=== PATIENT | female | born 1945 | race Caucasian/White ===

== ENCOUNTER → 2017-11-05 | Outpatient (CLI) | payer MEDICARE ==
[~2017-11-05] MED LIST: ALEVE220 MG PO; BUPR75; Budeprion Xl300 MG; CALCAVITD PO; Celexa10 MG PO; FOLBIC RF TABL1 EACH; Ferrous Fumara324 MG; GLUC500 PO; LATANOPROST1 GM; MELA3 PO; MSM; PRED1; PRIMADOPHILUS; PROLIA60 MG/1 ML; ULTRA-LIGHT RO1 EACH UD; Vitamin D2000 UNIT PO; ZINC10 MG PO; ZYRTEC10 M2 PO
[2017-11-07 14:21] LABS: Stool Occult Bld Immuno 1 Positive (NEGATIVE); Stool Occult Bld Immuno 2 Positive (NEGATIVE)
== END | disposition home or self-care (01) ==
LOC: OLS 09:47
PROVIDERS: Internal Medicine Gastroenterology
DX: D50.9 Iron deficiency anemia, unspecified (principal)
CPT/HCPCS: 82274

== ENCOUNTER 2017-12-17 14:17 | Day surgery (SDC) | payer MEDICARE ==
[~2017-12-17] VITALS: Ht 154.9 cm; Wt 49.5 kg
[~2017-12-17 14:17] MED LIST changes: -BUPR75; -ULTRA-LIGHT RO1 EACH UD
[2017-12-17] MEDS ORDERED: BUPR75 (14:42)
== END 2017-12-17 17:10 | disposition home or self-care (01) ==
LOC: ORSCSDS 14:17
PROVIDERS: Internal Medicine Gastroenterology
PROC: 0DB98ZX Excision of Duodenum, Via Natural or Artificial Opening Endoscopic, Diagnostic (ICD-10-PCS; principal; 2017-12-17 15:30)
PROC: 0DB38ZX Excision of Lower Esophagus, Via Natural or Artificial Opening Endoscopic, Diagnostic (ICD-10-PCS; principal; 2017-12-17 15:30)
PROC: 0DB68ZX Excision of Stomach, Via Natural or Artificial Opening Endoscopic, Diagnostic (ICD-10-PCS; principal; 2017-12-17 15:30)
DX: R19.5 Other fecal abnormalities (principal); K29.70 Gastritis, unspecified, without bleeding; K44.9 Diaphragmatic hernia without obstruction or gangrene; D50.9 Iron deficiency anemia, unspecified; J44.9 Chronic obstructive pulmonary disease, unspecified; G47.33 Obstructive sleep apnea (adult) (pediatric); Z87.891 Personal history of nicotine dependence
CPT/HCPCS: 87081; 88305

== ENCOUNTER 2018-01-28 15:13 | Emergency (ER) | payer MEDICARE ==
[~2018-01-28] VITALS: Ht 154.9 cm; Wt 49.9 kg
[~2018-01-28 15:13] MED LIST changes: +BUPR75
[2018-01-28 15:43] LABS: BASOPHILS ABSOLUTE AUTO 0.02 K/mm3 (0.00-0.23); BASOPHILS PERCENT AUTO 0 % (0-2); EOSINOPHILS ABSOLUTE AUTO 0.01 K/mm3 (0.00-0.68); EOSINOPHILS PERCENT AUTO 0 % (0-6); Hemoglobin 13.2 g/dL (11.5-16.0); IMMATURE GRAN ABSOLUTE AUTO 0.03 K/mm3 (0.00-0.10); IMMATURE GRAN PERCENT AUTO 0 % (0-1); LYMPHOCYTES ABSOLUTE AUTO 0.92 K/mm3 (0.84-5.20); LYMPHOCYTES PERCENT AUTO 10 % (21-46); MONOCYTES ABSOLUTE AUTO 1.16 K/mm3 (0.16-1.47); MONOCYTES PERCENT AUTO 13 % (4-13); Mean Corpuscular HGB 29.2 pg (26.0-34.0); Mean Corpuscular HGB Conc 32.2 g/dL (31.5-36.5); Mean Corpuscular Volume 91 fL (80-100); Mean Platelet Volume 8.8 fL (9.1-12.4); NEUTROPHILS ABSOLUTE AUTO 7.15 K/mm3 (1.96-9.15); NEUTROPHILS PERCENT AUTO 77 % (41-73); Platelet Count 376 K/mm3 (150-400); RDW Coefficient Variation 13.3 % (11.7-14.2); RDW Standard Deviation 44.5 fL (35.1-46.3); Red Blood Cell Count 4.52 M/mm3 (3.80-5.20); White Blood Cell Count 9.29 K/mm3 (4.00-11.30)
[2018-01-28 16:10] LABS: Alanine Aminotransfer (ALT/SGP 36 U/L (12-78); Albumin, Blood 3.2 g/dL (3.4-5.0); Albumin/Globulin Ratio 0.7 (0.8-1.8); Alk Phos 77 U/L (50-136); Anion Gap 11 mmol/L (6-16); Aspartate Aminotrans (AST/SGOT 53 U/L (12-37); Bilirubin, Total 0.7 mg/dL (0.1-1.0); Blood Urea Nitrogen 40 mg/dL (8-24); Bun/Creatinine Ratio 47.2 (12.0-20.0); CO2, Blood 27 mmol/L (21-32); Calcium, Blood 8.3 mg/dL (8.5-10.1); Chloride, Blood 98 mmol/L (98-108); Creatinine, Blood 0.85 mg/dL (0.40-1.00); Globulin, Blood 4.3 g/dL (2.2-4.0); Glomerular Filtration Rate >60 (60-); Glucose, Blood 111 mg/dL (70-99); Potassium, Blood 3.8 mmol/L (3.5-5.5); Sodium, Blood 136 mmol/L (136-145); Total Protein, Blood 7.5 g/dL (6.4-8.2)
[2018-01-28] MEDS ORDERED: ULTRA-LIGHT RO1 EACH UD (17:54)
== END 2018-01-28 18:29 | disposition home or self-care (01) ==
LOC: ER 15:13
PROVIDERS: Physician Assistant
DX: R41.0 Disorientation, unspecified (principal); Z91.030 Bee allergy status; Z79.899 Other long term (current) drug therapy; Z79.52 Long term (current) use of systemic steroids; Z87.891 Personal history of nicotine dependence
CPT/HCPCS: 36415; 70450; 71046; 80053; 82607; 82746; 83690; 84443; 85025; 93005; 93010; 99284

== ENCOUNTER → 2018-02-01 | Outpatient (CLI) | payer MEDICARE ==
[~2018-02-01] MED LIST changes: +ULTRA-LIGHT RO1 EACH UD
[2018-02-01 15:19] LABS: Appearance, Urine Clear (Clear); Bilirubin, Urine Neg (Neg); Blood, Urine 1+ (Neg); Color, Urine Yellow (P-Yellow); Glucose Qualitative, Urine Neg (Neg); Ketones, Urine Neg (Neg); Leukocyte Esterase, Urine 1+ (Neg); Nitrite, Urine Neg (Neg); Protein, Urine Neg (Neg); Urobilinogen, Urine NORM (Normal)
[2018-02-01 15:52] LABS: Red Blood Cells, Urine 0-2 /hpf (0-2)
[2018-02-01 15:54] LABS: Bacteria Rare /hpf; Squamous Epithelial Cells Rare /hpf (Few)
[2018-02-01 15:55] LABS: Uric Acid Crystals Mod /hpf
== END ==
LOC: LAB 14:45 → LAB FUT 01-21 16:30
PROVIDERS: Internal Medicine
DX: R30.0 Dysuria (principal)
CPT/HCPCS: 81001; 87086

== ENCOUNTER → 2018-11-19 | Outpatient (CLI) | payer OTHER ==
[2018-11-19 12:53] LABS: Bilirubin, Urine Neg (Neg); Blood, Urine 1+ (Neg); Glucose Qualitative, Urine Neg (Neg); Ketones, Urine Neg (Neg); Leukocyte Esterase, Urine 2+ (Neg); Nitrite, Urine Neg (Neg); Protein, Urine Neg (Neg); Urobilinogen, Urine NORM (Normal)
[2018-11-19 14:05] LABS: Appearance, Urine Clear (Clear); Color, Urine Yellow (P-Yellow); Source, Urine Clean Catch
[2018-11-19 14:06] LABS: Bacteria Few /hpf; Red Blood Cells, Urine Rare /hpf (0-2); Squamous Epithelial Cells Rare /hpf (Few)
== END | disposition home or self-care (01) ==
LOC: LAB SHORT 10:44 → LAB 10:44
PROVIDERS: Internal Medicine
DX: R32 Unspecified urinary incontinence (principal)
CPT/HCPCS: 81001; 87086

== ENCOUNTER 2019-01-20 17:00 | Observation (INO) | payer MEDICARE ==
[~2019-01-20] VITALS: Ht 160 cm; Wt 47.6 kg
[~2019-01-20 17:00] MED LIST changes: -Budeprion Xl300 MG
[2019-01-20] MEDS ORDERED: Norco 5-325 Ta1 EACH PO (20:15)
[2019-01-20] MEDS ORDERED: IBUP400 PO (20:15)
[2019-01-20] MEDS ORDERED: Budeprion Xl300 MG PO (21:14)
[2019-01-20] MEDS ORDERED: LATANOPROST2.5 ML BOTHEYES (21:24)
--- NOTE | 2019-01-20 23:30 | NUR ---
PT ADMITTED FROM ED FOR DX OF MULT FX'S (FACIAL, RADIAL AND KNEE) AFTER A GROUND LEVEL FALL. IMMOBILIZER PLACED TO R LEG, SLING PLACED TO R ARM. PT ALSO HAS A PAINFUL L WRIST. PT IS NOT COMPLAINING OF PAIN AT THIS TIME. VS ARE STABLE. PT IS CONFUSED; HX OF ALZHEIMERS. DAUGHTER AT BEDSIDE.
[2019-01-21 04:38] LABS: BASOPHILS ABSOLUTE AUTO 0.04 K/mm3 (0.00-0.23); BASOPHILS PERCENT AUTO 1 % (0-2); EOSINOPHILS ABSOLUTE AUTO 0.01 K/mm3 (0.00-0.68); EOSINOPHILS PERCENT AUTO 0 % (0-6); Hematocrit 35.9 % (33.0-51.0); Hemoglobin 11.4 g/dL (11.5-16.0); IMMATURE GRAN ABSOLUTE AUTO 0.02 K/mm3 (0.00-0.10); IMMATURE GRAN PERCENT AUTO 0 % (0-1); LYMPHOCYTES ABSOLUTE AUTO 1.01 K/mm3 (0.84-5.20); LYMPHOCYTES PERCENT AUTO 13 % (21-46); MONOCYTES ABSOLUTE AUTO 0.87 K/mm3 (0.16-1.47); MONOCYTES PERCENT AUTO 11 % (4-13); Mean Corpuscular HGB 29.6 pg (26.0-34.0); Mean Corpuscular HGB Conc 31.8 g/dL (31.5-36.5); Mean Corpuscular Volume 93 fL (80-100); Mean Platelet Volume 9.2 fL (9.1-12.4); NEUTROPHILS ABSOLUTE AUTO 5.86 K/mm3 (1.96-9.15); NEUTROPHILS PERCENT AUTO 75 % (41-73); Platelet Count 289 K/mm3 (150-400); RDW Standard Deviation 44.3 fL (35.1-46.3); Red Blood Cell Count 3.85 M/mm3 (3.80-5.20); White Blood Cell Count 7.81 K/mm3 (4.00-11.30)
[2019-01-21 05:01] LABS: Alanine Aminotransfer (ALT/SGP 26 U/L (12-78); Albumin, Blood 3.2 g/dL (3.4-5.0); Albumin/Globulin Ratio 0.9 (0.8-1.8); Alk Phos 129 U/L (50-136); Anion Gap 8 mmol/L (6-16); Aspartate Aminotrans (AST/SGOT 28 U/L (12-37); Bilirubin, Total 0.4 mg/dL (0.1-1.0); Blood Urea Nitrogen 17 mg/dL (8-24); Bun/Creatinine Ratio 24.9 (12.0-20.0); CO2, Blood 26 mmol/L (21-32); Calcium, Blood 8.7 mg/dL (8.5-10.1); Chloride, Blood 108 mmol/L (98-108); Creatinine, Blood 0.68 mg/dL (0.40-1.00); Globulin, Blood 3.5 g/dL (2.2-4.0); Glomerular Filtration Rate >60 (60-); Glucose, Blood 106 mg/dL (70-99); Sodium, Blood 142 mmol/L (136-145); Total Protein, Blood 6.7 g/dL (6.4-8.2)
--- NOTE | 2019-01-21 06:29 | NUR ---
NO CODE STATUS ORDER SEEN IN PT'S CHART. SPOKE WITH PT AND SHE IS REQUESTING TO BE FULL CODE. PHONE CALL PLACED TO DR. CHAVEZ FOR ORDERS. NO ANSWER AT THIS TIME. WILL WAIT FOR PHONE CALL BACK.
--- NOTE | 2019-01-21 09:43 | NUR ---
SURGICAL CONSULT CALLED TO DR AFLORD'S OFFICE AT THIS TIME.
--- NOTE | 2019-01-21 12:24 | NUR ---
ENT CONSULT CALLED TO DR ALCALA'S ANSWERING SERVICE AT THIS TIME.
--- NOTE | 2019-01-21 18:34 | NUR ---
SHIFT SUMMARY PATIENT W/O S/SX PAIN. UP TO RECLINER CHAIR W/PT. CIRC CHECKS TO ALL EXTREMITIES WNL; R FINGERS CONT W/SWELLING. FAMILY AND FRIENDS IN TO VISIT T/O SHIFT. PATIENT REMAINS PLEASANTLY CONFUSED, COOPERATIVELY.
--- NOTE | 2019-01-22 04:15 | NUR ---
SHIFT SUMMARY: NO ACUTE CHANGES OVERNIGHT. PT PLEASENT WITHOUT ANY SIGNIFICANT COMPLAINTS. GIVEN SCHED TYLENOL FOR PAIN. STAND/PIVOT TRANSFER FROM CHAIR TO BED IN BEGINNING OF SHIFT. 2 MAX ASSIST. ABLE TO TRANSFER TO BSC TO VOID ONCE. OTHERWISE VOIDING IN ATTENDS. CHECKING ATTENDS T/O NIGHT. R IMMOBILIZER AND R ARM CAST IN PLACE. FINGERS ON R SIDE REMAIN SLIGHTLY SWOLLEN. PT ABLE TO WIGGLE FINGERS AND TOES. CAP REFILL WNL, SKIN PINK AND WARM. PT APPEARS TO BE RESTING COMFORTABLY T/O NIGHT.
--- NOTE | 2019-01-22 13:50 | NUR ---
Met with Samantha. She is A/O to her name. She is not aware that she is in the hospital and she doesn't remember falling. She denies any pain at this time. Nursing reports that pt's daughter is working with staff for a safe discharge plan. She is sitting in the bedside chair during our conversation talking about a friend and the of her friend's mother. She is pleasantly confused and has no concerns or requests at this time.
--- NOTE | 2019-01-22 18:29 | NUR ---
SHIFT SUMMARY PATIENT W/O C/O THIS SHIFT. UP TO CHAIR AND BSC W/O S/SX DISCOMFORT. CIRC CHECKS TO R HAND/LE WNL. APPETITE POOR, TAKING ENSURE DRINKS. VISITORS IN TO SEE. [facility] CALLED TO REQUEST PATIENT INFO BE FAXED TO THEM. NOTICE LEFT FOR TAX LAWYER TO ADDRESS TOMORROW.
--- NOTE | 2019-01-23 | NUR ---
RECEIVED HAND OFF FROM Kadie MELCHOR RN USING SBAR. LYING IN SEMI FOWLERS WITH EYES CLOSED. ORIENTED TO ROOM, CALL SYSTEM, AND POC, VOICES UNDERSTANDING. DENIES PAIN, DISCOMFORT, OR FURTHER NEEDS AT THIS TIME. SAFETY MEASURES IN PLACE. WILL CONTINUE TO MONITOR.
--- NOTE | 2019-01-23 06:32 | NUR ---
LYING IN SEMI FOWLERS WITH EYES CLOSED. HAS HAD NO C/O PAIN OR DISCOMFORT THIS SHIFT. DENIES FURTHER NEEDS OR WANTS AT THIS TIME. SAFETY MEASURES IN PLACE. WILL GIVE HAND OFF TO ONCOMING SHIFT USING SBAR.
[2019-01-23] MEDS ORDERED: ACET325 PO (13:21)
[2019-01-23] MEDS ORDERED: Augmentin 875-1 EACH PO (13:22)
[2019-01-23] MEDS ORDERED: DOCU100 PO (13:23)
[2019-01-23] MEDS ORDERED: SENN187 PO (13:24)
[2019-01-23] MEDS ORDERED: TRAM50 PO (13:26)
[2019-01-23] MEDS ORDERED: PROBIOTIC GOLD1 EACH PO (13:26)
--- NOTE | 2019-01-23 14:13 | NUR ---
L WRIST PT'S VISITORS REPORTS PT HAS BEEN COMPLAINING OF HER L WRIST HURTING, PT HAS BEEN NOTED TO USE HER L HAND TO FEED HERSELF AND HOLD A CUP TO TAKE A DRINK THIS AM, DR. CLAY NOTIFIED OF THEIR CONCERN. PT REPORTED HAVING PAIN ON R ARM THIS AM BUT WAS NOT SURE WHY SHE IS IN THE HOSPITAL OR HOW SHE INJURED HER ARM.
--- NOTE | 2019-01-23 14:21 | NUR ---
[facility] SPOKE TO [facility] AT [facility], PT WAS EVALUATED TODAY, STATES PT WILL MOST LIKELY BE ACCEPTED ON FRIDAY BUT THEY HAVE TO DISCUSS IT WITH THEIR BOSS AND OBTAIN ORDERS AND H&P FROM PT'S PCP, NATALIA GONSALEZ, EXPLAINED THAT PT IS UNDER HOSPITALIST CARE AND THAT H&P, LABS AND OTHER CHART NOTES THEY REQUESTED WERE FAXED EARLIER THIS MORNING.
--- NOTE | 2019-01-23 14:53 | NUR ---
PHYSICAL THERAPY PT WORKED WITH PHYS. THER. STATES PT WAS ABLE TO STAND AND BEAR WEIGHT WITHOUT PAIN, KNEE IMMOBILIZER REMOVED BY TAMMY,PT TO ALLOW PT TO FLEX KNEE AND MOVE R LEG, TAMMY REPORTS PT WAS ABLE TO USE ERIK WALKER AND PUSH OFF BED WITH L HAND WITHOUT C/O PAIN.
--- NOTE | 2019-01-23 18:31 | NUR ---
SUMMARY OOB TO CHAIR, DENIES ANY PAIN OR ANY DISCOMFORT, PT ABLE TO FEED HERSELF DINNER, CIRC INTACT ON BUE'S AND RLE, NO ACUTE CHANGES THIS SHIFT.
--- NOTE | 2019-01-23 20:08 | NUR ---
PT UP IN CHAIR WATCHING TV. VERY PLEASANT AND COOPERATIVE. ORIENTED TO SELF BUT DID HAVE CONFUSED CONVERSATION, PT STATED HAVING A MEETING WITH A HIGH SCHOOL COUNSELOR TODAY. TAB ALARM IS IN PLACE. RIGHT ARM IN SLING, IMMOBILIZER IS OFF PT AT THIS TIME. CAN WIGGLE FINGERS, BRISK CAP REFIL. LARGE BRUISE NOTED TO FACE MOSTLY AROUND RIGHT EYE. WILL MONITOR FREQUENTLY T/O SHIFT.
--- NOTE | 2019-01-24 05:18 | NUR ---
NO SIG CHANGES DURING NIGHT. PT DID HAVE LARGE LOOSE STOOL AT BEGINNING OF SHIFT. DID HOLD SOFTNERS AND SENNA. PT SLEPT GREAT DURING NIGHT. DENIES ANY SIG PAIN. RIGHT UE REMAINED ELEVATED ON PILLOWS. CONT TO REPOSITION T/O NIGHT. USED CALLED LIGHT APPROPRIATELY AND DID NOT ATTEMPT TO GET OOB WITHOUT ASSISTANCE. PLAN FOR POSSIBLE DC TO [facility] ON FRIDAY. CALL LIGHT IN REACH AND BED ALARM IS ON FOR SAFETY. WILL REPORT OFF TO NEXT SHIFT.
--- NOTE | 2019-01-24 15:35 | NUR ---
LEFT WRIST FX XR SHOWED FX OF L WRIST. NOTIFIED DR CLAY. OBTAINED ORDERS FOR ORTHO CONSULT. CALLED ANSWERING SERVICE AND LEFT MSG FOR DR ENCISO.
--- NOTE | 2019-01-24 15:35 | NUR ---
TURNED OVER CARE TO JOSSY Bray RN.
--- NOTE | 2019-01-24 15:40 | NUR ---
REPORT FROM OFELIA LUGO PT SITTING UP IN CHAIR AWAITING NEWS FROM DR ENCISO
--- NOTE | 2019-01-24 17:14 | NUR ---
PT'S DAUGHTER AT BEDSIDE DISCUSSED PT'S XRAY RESULTS AND CONSULT WITH DR ENCISO SHE HAD QUESTIONS RE HER DISCHARGE AND IF THIS WILL IMPACT IT WILL HAVE HER TALK WITH SS IN AM
--- NOTE | 2019-01-24 18:45 | NUR ---
pt still working on eating her dinner req to keep her tray longer
--- NOTE | 2019-01-25 | NUR ---
ASSITED TO BED AND POSTIONED FOR COMFORT. DENIES PAIN, DISCOMFORT, OR FURTHER NEEDS AT THIS TIME. SAFETY MEASURES IN PLACE. WILL CONTINUE TO MONITOR.
--- NOTE | 2019-01-25 08:49 | NUR ---
DR DOZIER IN ROOM. BILATERAL 4" ORTHO GLASS SPLINTS PLACED TO WRISTS. GOOD CSM POST SPLINT, PATIENT ESTEPHANIA WELL.
--- NOTE | 2019-01-25 15:50 | NUR ---
DISCHARGE PT TRANSFERRED VIA [facility] TO [facility]. DISCUSSED FOLLOWUP APPOINTMENTS MADE WITH DR DOZIER AND DR ALCALA'S OFFICE WITH PATIENT AND DAUGHTER.
== END 2019-01-25 15:50 | disposition home or self-care (01) ==
LOC: ER 17:00 → SURS 17:01
PROVIDERS: ADMIT Internal Medicine
DX: S02.40CA Maxillary fracture, right side, initial encounter for closed fracture (principal); S02.40EA Zygomatic fracture, right side, initial encounter for closed fracture; S02.31XA Fracture of orbital floor, right side, initial encounter for closed fracture; S59.201A Unspecified physeal fracture of lower end of radius, right arm, initial encounter for closed fracture; S59.202A Unspecified physeal fracture of lower end of radius, left arm, initial encounter for closed fracture; S80.01XA Contusion of right knee, initial encounter; G30.9 Alzheimer's disease, unspecified; F02.80 Dementia in other diseases classified elsewhere, unspecified severity, without behavioral disturbance, psychotic disturbance, mood disturbance, and anxiety; J44.9 Chronic obstructive pulmonary disease, unspecified; F32.9 Major depressive disorder, single episode, unspecified; M85.80 Other specified disorders of bone density and structure, unspecified site; Z79.899 Other long term (current) drug therapy; W18.30XA Fall on same level, unspecified, initial encounter
CPT/HCPCS: 29125; 29505; 36415; 70450; 71046; 72125; 73110; 73562-RT; 80053; 85025; 97110; 97116; 97162; 97166; 97530; 99285-25; J3010; J7030

== ENCOUNTER → 2019-03-03 | Outpatient (CLI) | payer MEDICARE ==
[~2019-03-03] MED LIST changes: +ACET325 PO; +Augmentin 875-1 EACH PO; +Budeprion Xl300 MG PO; +DOCU100 PO; +IBUP400 PO; +LATANOPROST2.5 ML BOTHEYES; +Norco 5-325 Ta1 EACH PO; +PROBIOTIC GOLD1 EACH PO; +SENN187 PO; +TRAM50 PO
[2019-03-03 19:49] LABS: Appearance, Urine Hazy (Clear); Bilirubin, Urine Neg (Neg); Blood, Urine 4+ (Neg); Color, Urine Yellow (P-Yellow); Glucose Qualitative, Urine Neg (Neg); Ketones, Urine Neg (Neg); Leukocyte Esterase, Urine 3+ (Neg); Nitrite, Urine Pos (Neg); Protein, Urine 2+ (Neg); Specific Gravity, Urine 1.015 (1.003-1.022); Urobilinogen, Urine NORM (Normal)
[2019-03-03 20:09] LABS: Red Blood Cells, Urine 0-2 /hpf (0-2); White Blood Cells, Urine TNTC /hpf (0-5)
[2019-03-03 20:10] LABS: Bacteria Few /hpf; Squamous Epithelial Cells Few /hpf (Few)
== END | disposition home or self-care (01) ==
LOC: LAB SHORT 19:16 → LAB 19:16
PROVIDERS: Internal Medicine
DX: N39.0 Urinary tract infection, site not specified (principal)
CPT/HCPCS: 81001; 87077; 87086; 87186

== ENCOUNTER → 2019-05-18 | Outpatient (CLI) | payer MEDICARE ==
[2019-05-18 09:02] LABS: Bilirubin, Urine Neg (Neg); Blood, Urine Neg (Neg); Glucose Qualitative, Urine Neg (Neg); Ketones, Urine Neg (Neg); Leukocyte Esterase, Urine Neg (Neg); Nitrite, Urine Neg (Neg); Protein, Urine Neg (Neg); Urobilinogen, Urine NORM (Normal)
[2019-05-18 09:10] LABS: Appearance, Urine Clear (Clear); Color, Urine Yellow (P-Yellow)
== END | disposition home or self-care (01) ==
LOC: LAB 08:51 → LAB SHORT 08:51
PROVIDERS: Internal Medicine
DX: N39.0 Urinary tract infection, site not specified (principal)
CPT/HCPCS: 81003

== ENCOUNTER → 2020-11-24 | Outpatient (CLI) | payer MEDICARE ==
[2020-11-24 12:50] LABS: BASOPHILS ABSOLUTE AUTO 0.05 K/mm3 (0.00-0.23); BASOPHILS PERCENT AUTO 1 % (0-2); EOSINOPHILS ABSOLUTE AUTO 0.11 K/mm3 (0.00-0.68); EOSINOPHILS PERCENT AUTO 2 % (0-6); Hematocrit 34.1 % (33.0-51.0); Hemoglobin 10.4 g/dL (11.5-16.0); IMMATURE GRAN ABSOLUTE AUTO 0.01 K/mm3 (0.00-0.10); IMMATURE GRAN PERCENT AUTO 0 % (0-1); LYMPHOCYTES ABSOLUTE AUTO 1.23 K/mm3 (0.84-5.20); LYMPHOCYTES PERCENT AUTO 20 % (21-46); MONOCYTES ABSOLUTE AUTO 0.61 K/mm3 (0.16-1.47); MONOCYTES PERCENT AUTO 10 % (4-13); Mean Corpuscular HGB 27.1 pg (26.0-34.0); Mean Corpuscular HGB Conc 30.5 g/dL (31.5-36.5); Mean Corpuscular Volume 89 fL (80-100); Mean Platelet Volume 9.3 fL (9.1-12.4); NEUTROPHILS ABSOLUTE AUTO 4.16 K/mm3 (1.96-9.15); NEUTROPHILS PERCENT AUTO 67 % (41-73); Platelet Count 444 K/mm3 (150-400); RDW Standard Deviation 49.1 fL (35.1-46.3); Red Blood Cell Count 3.84 M/mm3 (3.80-5.20); White Blood Cell Count 6.17 K/mm3 (4.00-11.30)
[2020-11-24 13:48] LABS: Alanine Aminotransfer (ALT/SGP 15 U/L (12-78); Albumin/Globulin Ratio 0.8 (0.8-1.8); Alk Phos 97 U/L (50-136); Anion Gap 6 mmol/L (6-16); Aspartate Aminotrans (AST/SGOT 15 U/L (12-37); Bilirubin, Total 0.2 mg/dL (0.1-1.0); Blood Urea Nitrogen 17 mg/dL (8-24); Bun/Creatinine Ratio 29.5 (12.0-20.0); CO2, Blood 27 mmol/L (21-32); Calcium, Blood 8.9 mg/dL (8.5-10.1); Chloride, Blood 107 mmol/L (98-108); Creatinine, Blood 0.58 mg/dL (0.40-1.00); Globulin, Blood 3.9 g/dL (2.2-4.0); Glomerular Filtration Rate >60 (60-); Glucose, Blood 130 mg/dL (70-99); Sodium, Blood 140 mmol/L (136-145); Total Protein, Blood 6.9 g/dL (6.4-8.2)
== END | disposition home or self-care (01) ==
LOC: LAB SHORT 10:15 → LAB 10:15
PROVIDERS: Internal Medicine
DX: M06.4 Inflammatory polyarthropathy (principal)
CPT/HCPCS: 80053; 85025

== ENCOUNTER → 2020-12-08 | Outpatient (CLI) | payer MEDICARE ==
[2020-12-08 12:46] LABS: Percent Saturation 9.1 % (15.0-50.0)
== END ==
LOC: LAB 08:50 → LAB SHORT 08:50
PROVIDERS: Internal Medicine
DX: D50.8 Other iron deficiency anemias (principal); E53.8 Deficiency of other specified B group vitamins
CPT/HCPCS: 82607; 82728; 82746; 83540; 83550

== ENCOUNTER → 2021-01-10 | Outpatient (CLI) | payer MEDICARE ==
[2021-01-10 15:07] LABS: BASOPHILS ABSOLUTE AUTO 0.05 K/mm3 (0.00-0.23); BASOPHILS PERCENT AUTO 1 % (0-2); EOSINOPHILS ABSOLUTE AUTO 0.11 K/mm3 (0.00-0.68); EOSINOPHILS PERCENT AUTO 2 % (0-6); Hematocrit 38.2 % (33.0-51.0); Hemoglobin 11.5 g/dL (11.5-16.0); IMMATURE GRAN ABSOLUTE AUTO 0.01 K/mm3 (0.00-0.10); IMMATURE GRAN PERCENT AUTO 0 % (0-1); LYMPHOCYTES ABSOLUTE AUTO 1.63 K/mm3 (0.84-5.20); LYMPHOCYTES PERCENT AUTO 23 % (21-46); MONOCYTES ABSOLUTE AUTO 0.79 K/mm3 (0.16-1.47); MONOCYTES PERCENT AUTO 11 % (4-13); Mean Corpuscular HGB 27.4 pg (26.0-34.0); Mean Corpuscular HGB Conc 30.1 g/dL (31.5-36.5); Mean Corpuscular Volume 91 fL (80-100); Mean Platelet Volume 9.2 fL (9.1-12.4); NEUTROPHILS ABSOLUTE AUTO 4.61 K/mm3 (1.96-9.15); NEUTROPHILS PERCENT AUTO 64 % (41-73); Platelet Count 423 K/mm3 (150-400); RDW Coefficient Variation 16.6 % (11.7-14.2); RDW Standard Deviation 56.1 fL (35.1-46.3); Red Blood Cell Count 4.19 M/mm3 (3.80-5.20)
== END | disposition home or self-care (01) ==
LOC: LAB SHORT 13:24 → LAB 13:24
PROVIDERS: Internal Medicine
DX: D50.8 Other iron deficiency anemias (principal)
CPT/HCPCS: 82728; 83540; 83550; 85025

== ENCOUNTER 2021-06-12 06:43 | Emergency (ER) | payer MEDICARE ==
[~2021-06-12] VITALS: Ht 157.5 cm; Wt 45.4 kg
== END 2021-06-12 11:00 ==
LOC: ER 06:43
DX: I46.9 Cardiac arrest, cause unspecified (principal); Z51.5 Encounter for palliative care; G40.901 Epilepsy, unspecified, not intractable, with status epilepticus; J44.9 Chronic obstructive pulmonary disease, unspecified; G30.9 Alzheimer's disease, unspecified; F02.80 Dementia in other diseases classified elsewhere, unspecified severity, without behavioral disturbance, psychotic disturbance, mood disturbance, and anxiety; Z91.038 Other insect allergy status
CPT/HCPCS: 99285